=== PATIENT | female | born 1970 | race Hispanic/Latino ===

== ENCOUNTER 2019-07-08 16:24 | Emergency (ER) | payer BC, OTHER ==
[2019-07-08] MEDS ORDERED: IBUPROFEN 600 MG TABLET ONE (17:00)
[2019-07-08] MEDS ORDERED: DIAZEPAM 5 MG TABLET ONE (17:00)
== END 2019-07-08 19:01 | disposition home or self-care (01) ==
LOC: EDH 16:24
DX: G44.209 Tension-type headache, unspecified, not intractable (principal); I10 Essential (primary) hypertension; Z98.890 Other specified postprocedural states

== ENCOUNTER 2022-09-25 22:55 | Emergency (ER) | payer BC ==
[~2022-09-25] VITALS: Ht 154.9 cm; Wt 91.6 kg
[2022-09-25] MEDS ORDERED: TRIAMCINOLONE ACETONIDE 40 MG/ML 1ML VIAL ONE (23:32)
[2022-09-25] MEDS ORDERED: BUPIVACAINE/PF 0.5% 30ML VIAL ONE (23:33)
[2022-09-26] MEDS ORDERED: BUPIVACAINE/PF 0.5% 10ML VIAL IJ ONE
[2022-09-26] MEDS ORDERED: TRIAMCINOLONE ACETONIDE 40 MG/ML 1ML VIAL SQ ONE
[2022-09-26] MEDS ORDERED: DiphenhydrAMINE HCL 50 MG/ML VIAL IV ONE (00:30)
[2022-09-26] MEDS ORDERED: KETOROLAC 15MG/ML VIAL (15MG/ML) IV ONE (00:30)
[2022-09-26] MEDS ORDERED: PROCHLORPERAZINE 10MG/2ML INJ IV ONE (00:30)
[2022-09-26 01:22] VITALS: BP 147/83
[2022-09-26] MEDS ORDERED: IBUP-2070 PO (01:34)
== END 2022-09-26 01:47 | disposition home or self-care (01) ==
LOC: EDH 22:55
DX: G44.89 Other headache syndrome (principal); F43.9 Reaction to severe stress, unspecified; I10 Essential (primary) hypertension
CPT/HCPCS: 20552; 99283; 96372; 96374; 96375; J3301; J3490 ×2; J1200; J0780; J1885